=== PATIENT | male | born 1990 | race Two or more races ===

== ENCOUNTER 2019-04-22 22:21 | Emergency (ER) | payer MEDICAID ==
[~2019-04-22] VITALS: Ht 167.6 cm; Wt 95.5 kg
[~2019-04-22 22:21] MED LIST: IBUP-1689 PO
[2019-04-22 23:10] LABS: GLUCOSE,POINT OF CARE 116 MG/DL (70-110)
[2019-04-22 23:45] VITALS: BP 118/79
[2019-04-22 23:50] LABS: GLUCOSE,POINT OF CARE 110 MG/DL (70-110)
[2019-04-23] MEDS ORDERED: FLUCONAZOLE 150 MG TABLET PO ONE
[2019-04-23] MEDS ORDERED: CLOTRIMAZOLE 1% 15 GM CREAM TP ONE
== END 2019-04-23 00:29 | disposition home or self-care (01) ==
LOC: EMS 22:22
DX: B35.3 Tinea pedis (principal); I10 Essential (primary) hypertension; E11.9 Type 2 diabetes mellitus without complications; F17.210 Nicotine dependence, cigarettes, uncomplicated

== ENCOUNTER 2019-05-03 13:06 | Emergency (ER) | payer MEDICAID ==
[~2019-05-03] VITALS: Ht 175.3 cm; Wt 102.3 kg
[2019-05-03 13:14] VITALS: BP 146/83
[2019-05-04 12:07] LABS: GLUCOSE,POINT OF CARE 106 MG/DL (70-110)
== END 2019-05-03 15:33 | disposition left against medical advice (07) ==
LOC: EMS 13:08
DX: F41.9 Anxiety disorder, unspecified (principal); Z53.21 Procedure and treatment not carried out due to patient leaving prior to being seen by health care provider

== ENCOUNTER 2020-08-28 19:23 | Emergency (ER) | payer MEDICAID, OTHER ==
[~2020-08-28] VITALS: Ht 175.3 cm; Wt 127.3 kg
[2020-08-28 19:45] LABS: GLUCOSE,POINT OF CARE 250 MG/DL (70-110)
[2020-08-28 23:30] VITALS: BP 135/84
== END 2020-08-29 01:01 | disposition home or self-care (01) ==
LOC: EMS 19:23
DX: U07.1 COVID-19 (principal); R19.7 Diarrhea, unspecified; E11.9 Type 2 diabetes mellitus without complications; I10 Essential (primary) hypertension; F17.210 Nicotine dependence, cigarettes, uncomplicated
CPT/HCPCS: 82962; 99283; U0003